=== PATIENT | male | born 1975 | race Two or more races ===

== ENCOUNTER 2018-03-19 06:37 | Day surgery (SDC) | payer MEDICAID ==
[2018-03-11 09:58] VITALS: BMI 27.3
[2018-03-19] MEDS ORDERED: Propofol 10 mg/ml Inj (20 ML) ONE ×3 (08:54→09:24)
[2018-03-19] MEDS ORDERED: Lidocaine PF 2% (5 ml) Inj (For Cardiac Arrhy) ONE (08:57)
[2018-03-19] MEDS ORDERED: Sodium Chloride 0.9% 1,000 ML IV SCH (09:00)
[2018-03-19 09:42] VITALS: TEMP 98
[2018-03-19 10:37] VITALS: BP 125/82; PULSE 59; RESP 16; O2SAT 100
== END 2018-03-19 11:15 | disposition home or self-care (01) ==
LOC: ENDO 06:37
PROVIDERS: ATTEND Internal Medicine Gastroenterology
DX: K20.8 Other esophagitis (principal); K57.30 Diverticulosis of large intestine without perforation or abscess without bleeding; K29.50 Unspecified chronic gastritis without bleeding; B96.81 Helicobacter pylori [H. pylori] as the cause of diseases classified elsewhere; K64.0 First degree hemorrhoids; I10 Essential (primary) hypertension; Z98.84 Bariatric surgery status